=== PATIENT | female | born 1980 | race American Indian/Alaskan Native ===

== ENCOUNTER 2016-12-11 13:08 | Emergency (ER) | payer MEDICAID ==
--- NOTE | 2016-12-11 14:19 | XRay Report ---
RIGHT ANKLE, 3 views: History: Pain after long. Findings: Mild soft tissue swelling is identified. No acute osseous abnormality or joint pathology is identified. The fifth metatarsal base is intact. Impression: Soft tissue swelling. No acute osseous injury.
--- NOTE | 2016-12-11 16:25 | Emergency Department Report ---
ED Lower Extremity HPI - General Chief Complaint: Extremity Injury, Lower Stated Complaint: RT ANKLE SWOLLEN Time Seen by Provider: 12/11/16 16:14 Source: patient Mode of arrival: Ambulatory Limitations: No Limitations - History of Present Illness MD Complaint: ankle injury -: Last night Injury: Ankle: Right Type of Injury: inversion Place: home Severity: mild Severity scale (0 -10): 2 Improves With: NSAID Worsens With: weight bearing, movement Other Symptoms: other (also needing refill on BP meds.) Associated Symptoms: denies: snap/pop sensation, swelling, numbness, tingling - Related Data Previous Rx's Medication Instructions Recorded Last Taken Type Hydrochlorothiazide [HCTZ] 25 mg PO QDAY #60 tablet 12/11/16 Unknown Rx Metoprolol Xl [Metoprolol 50 mg PO QDAY #60 tablet 12/11/16 Unknown Rx SUCCINATE ER TAB] Allergies Allergy/AdvReac Type Severity Reaction Status Date / Time lisinopril AdvReac Swelling Verified 12/11/16 15:50 ED Review of Systems ROS: Stated complaint: RT ANKLE SWOLLEN Other details as noted in HPI Comment: All other systems reviewed and negative ED Past Medical Hx - Past Medical History Previous Medical History?: Yes Hx Hypertension: Yes - Surgical History Past Surgical History?: No - Social History Smoking Status: Never Smoker Substance Use Type: Alcohol - Medications Home Medications: Home Medications Medication Instructions Recorded Confirmed Last Taken Type Hydrochlorothiazide [HCTZ] 25 mg PO QDAY #60 tablet 12/11/16 Unknown Rx Metoprolol Xl [Metoprolol 50 mg PO QDAY #60 tablet 12/11/16 Unknown Rx SUCCINATE ER TAB] ED Physical Exam - General Limitations: No Limitations General appearance: alert, in no apparent distress - Head Head exam: Present: atraumatic, normocephalic - Eye Eye exam: Present: normal appearance - ENT ENT exam: Present: mucous membranes moist - Neck Neck exam: Present: normal inspection - Respiratory Respiratory exam: Present: normal lung sounds bilaterally. Absent: respiratory distress - Cardiovascular Cardiovascular Exam: Present: regular rate, normal rhythm. Absent: systolic murmur, diastolic murmur, rubs, gallop - GI/Abdominal GI/Abdominal exam: Present: soft, normal bowel sounds - Extremities Exam Extremities exam: Present: normal inspection, full ROM, tenderness (lateral mallelous right ankle tenderness) - Back Exam Back exam: Present: normal inspection - Neurological Exam Neurological exam: Present: alert, oriented X3 - Psychiatric Psychiatric exam: Present: normal affect, normal mood - Skin Skin exam: Present: warm, dry, intact, normal color. Absent: rash ED Course Vital Signs 12/11/16 12/11/16 13:36 15:54 Temperature 98 F Pulse Rate 89 71 Respiratory 18 16 Rate Blood Pressure 197/125 Blood Pressure 185/114 [Right] O2 Sat by Pulse 100 100 Oximetry ED Lower Extremity MDM - Medical Decision Making will discharge , noting her HTN which is uncontrolled due to non compliance, no evidence of end organ damage at this time. will dc with outpatient referral Critical care attestation.: If time is entered above; I have spent that time in minutes in the direct care of this critically ill patient, excluding procedure time. ED Disposition Clinical Impression: Ankle sprain, Hypertension Is pt being admited?: No Does the pt Need Aspirin: No Condition: Good Prescriptions: Hydrochlorothiazide [HCTZ] 25 mg PO QDAY #60 tablet Metoprolol Xl [Metoprolol SUCCINATE ER TAB] 50 mg PO QDAY #60 tablet Referrals: PRIMARY CARE [Primary Care Provider] - 3-5 Days Time of Disposition: 16:25
[2016-12-11 16:49] VITALS: BP 173/104
== END 2016-12-11 16:49 | disposition home or self-care (01) ==
LOC: ED 13:08
DX: S93.401A Sprain of unspecified ligament of right ankle, initial encounter (principal); I10 Essential (primary) hypertension; X50.3XXA Overexertion from repetitive movements, initial encounter; X50.9XXA Other and unspecified overexertion or strenuous movements or postures, initial encounter; X50.0XXA Overexertion from strenuous movement or load, initial encounter; Y93.89 Activity, other specified; Y92.89 Other specified places as the place of occurrence of the external cause; Y99.8 Other external cause status; Z88.8 Allergy status to other drugs, medicaments and biological substances

== ENCOUNTER 2017-03-28 00:51 | Emergency (ER) | payer MEDICAID ==
[2017-03-28] MEDS ORDERED: BOOSTRIX IM ONE (02:13)
[2017-03-28] MEDS ORDERED: NORCO 5/325 PO ONE (02:13)
[2017-03-28 02:20] LABS: Bilirubin,Urine NEG (Negative); Blood,Urine NEG (Negative); Ketones,Urine NEG (Negative); Leukocyte Esterase,Urine TR (Negative); Nitrite,Urine NEG (Negative); Protein,Urine <15 mg/dL mg/dL (Negative); Urobilinogen,Urine < 2.0 mg/dL (<2.0)
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
[2017-03-28 03:35] LABS: Basophils % (Auto) 0.6 % (0.0-1.8); Eosinophils % (Auto) 0.2 % (0.0-4.3); Mean Corpuscular HGB Conc 30 % (30-34); Platelet Count 236 K/mm3 (140-440); Red Blood Count 4.41 M/mm3 (3.65-5.03)
[2017-03-28 03:38] LABS: Hematocrit 30.6 % (30.3-42.9); Hemoglobin 9.1 gm/dl (10.1-14.3); Mean Corpuscular Hemoglobin 21 pg (28-32); Mean Corpuscular Volume 70 fl (79-97)
[2017-03-28 03:41] LABS: Alanine Aminotransferase 6 units/L (7-56); Albumin 4.4 g/dL (3.9-5); Albumin/Globulin Ratio 1.3 %; Alkaline Phosphatase 58 units/L (35-129); Anion Gap 17 mmol/L; BUN/Creatinine Ratio 11.25; Blood Urea Nitrogen 9 mg/dL (7-17); Calcium 9.2 mg/dL (8.4-10.2); Carbon Dioxide 25 mmol/L (22-30); Chloride 102.6 mmol/L (98-107); Glucose 107 mg/dL (65-100); Sodium 141 mmol/L (137-145); Total Protein 7.7 g/dL (6.3-8.2)
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
[2017-03-28 05:37] VITALS: BP 152/90
--- NOTE | 2017-03-28 09:03 | XRay Report ---
Chest 2 views: History: Chest pain. Findings: Normal cardiomediastinal silhouette. Trachea is midline. No consolidation, pneumothorax or pleural effusion. Impression: No acute cardiopulmonary findings.
== END 2017-03-28 05:37 | disposition home or self-care (01) ==
LOC: ED 00:51
DX: S16.1XXA Strain of muscle, fascia and tendon at neck level, initial encounter (principal); S39.012A Strain of muscle, fascia and tendon of lower back, initial encounter; G89.29 Other chronic pain; I10 Essential (primary) hypertension; F17.200 Nicotine dependence, unspecified, uncomplicated; Z98.890 Other specified postprocedural states; Z88.8 Allergy status to other drugs, medicaments and biological substances; V89.2XXA Person injured in unspecified motor-vehicle accident, traffic, initial encounter; Y93.89 Activity, other specified; Y99.8 Other external cause status; Y92.488 Other paved roadways as the place of occurrence of the external cause
CPT/HCPCS: 36415; 71020; 72125; 72131; 80053; 81001; 81025; 85025; 90471; 90715

== ENCOUNTER 2019-04-01 14:51 | Emergency (ER) | payer MEDICAID ==
--- NOTE | 2019-04-01 14:58 | Event Note ---
ED Screening Note ED Screening Note: a/c low back pain no home meds no dysuria, no fever or chills rx norvasc atenolol no fall or trauma This initial assessment/diagnostic orders/clinical plan/treatment(s) is/are subject to change based on patients health status, clinical progression and re- assessment by fellow clinical providers in the ED. Further treatment and workup at subsequent clinical providers discretion. Patient/guardian urged not to elope from the ED as their condition may be serious if not clinically assessed and managed. Initial orders include: IM pain med in ACC
[2019-04-01 14:59] VITALS: BP 134/89
[2019-04-01 15:42] LABS: Bacteria,Urine 1+ /HPF (Negative); Bilirubin,Urine NEG (Negative); Blood,Urine NEG (Negative); Color,Urine Yellow (Yellow); Protein,Urine <15 mg/dL mg/dL (Negative)
[2019-04-01 15:45] LABS: HCG Qualitative,Urine Negative (Negative)
--- NOTE | 2019-04-01 16:27 | Emergency Department Report ---
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 The patient denies any trauma, injuries or falls today. Patient states that pain is a progressive lower back and radiates down her right thigh ED Past Medical Hx - Past Medical History Hx Hypertension: Yes Hx Arthritis: Yes Additional medical history: CHRONIC BACK PAIN - Surgical History Additional Surgical History: - Social History Smoking Status: Current Every Day Smoker Substance Use Type: Alcohol - Medications Home Medications: Home Medications Medication Instructions Recorded Confirmed Last Taken Type Metoprolol Xl [Metoprolol 50 mg PO QDAY #60 tablet 12/11/16 Unknown Rx SUCCINATE ER TAB] hydroCHLOROthiazide [HCTZ] 25 mg PO QDAY #60 tablet 12/11/16 Unknown Rx HYDROcodone/APAP 5-325 [[place] 1 each PO Q6HR PRN #12 tablet 03/28/17 Unknown Rx 5/325] diazePAM TAB [Valium] 2 mg PO TID PRN #12 tablet 03/28/17 Unknown Rx Gabapentin [Neurontin] 300 mg PO BID #30 cap 04/01/19 Unknown Rx ED Review of Systems ROS: Stated complaint: LOW BACK PAIN Other details as noted in HPI Comment: All other systems reviewed and negative Physical Exam - Physical Exam Vital Signs: Vital Signs 04/01/19 14:56 Temperature 98 F Pulse Rate 71 Respiratory 16 Rate Blood Pressure 134/89 [Left] O2 Sat by Pulse 95 Oximetry Physical Exam: GENERAL: Alert and oriented x3, no apparent distress, Normal Gait, atraumatic. HEAD: Head is normocephalic and a-traumatic. NECK: Supple. Non edematous, No lymphadenopathy or thyromegaly. No C-spine tenderness, full range of motion LUNGS: Symetrical with respiration, No wheezing, no rales or crackles, CTAB. HEART: S1, S2 present, regular rate and rhythm without murmur, no rubs, no gallops. Non tender to palpation BACK: Full range of motion, no spinal tenderness, Tenderness to palpation of the trapezius muscles and latissimus dorsi muscles of the back EXTREMITIES/MUSCULOSKELETAL: No cyanosis, clubbing, rash, lesions or edema. Full ROM bilaterally. UE/LE Pulses 2+ bilaterally. LE and UE 5+ strength bilaterally, NEUROLOGIC: The patient is cooperative with no focal neurologic deficits. SKIN: Warm and dry, No lesions, No ulceration or induration present. ED Course Vital Signs 04/01/19 14:56 Temperature 98 F Pulse Rate 71 Respiratory 16 Rate Blood Pressure 134/89 [Left] O2 Sat by Pulse 95 Oximetry ED Medical Decision Making - Medical Decision Making 38-year-old female presents to ED with lumbar radiculopathy ED course: Vital signs are normal patient is in no acute distress Discussed with patient follow-up with primary care physician. Discussed the patient and take medications as prescribed. Patient has no neurological deficit. Patient is alert and oriented 3 and understands all instructions given. Discussed drowsiness effect of gabapentin makes her drowsy and not to operate machinery while taking gabapentin Patient does state that she was taking gabapentin and is out of her gabapentin. Patient does state she wants a referral for another orthopedic doctor because she sees Dr. Corral and she is not happy with. Critical care attestation.: If time is entered above; I have spent that time in minutes in the direct care of this critically ill patient, excluding procedure time. ED Disposition Clinical Impression: Chronic back pain, Lumbar radicular pain Disposition: DC- TO HOME OR SELFCARE Is pt being admited?: No Does the pt Need Aspirin: No Condition: Stable Instructions: Chronic Back Pain (ED), Lumbar Radiculopathy (ED) Additional Instructions: Make sure to follow up with the primary care physician as discussed. Take all your medications as you've been prescribed. If you have any worsening symptoms or develop new symptoms please return to ED immediately. Prescriptions: Gabapentin [Neurontin] 300 mg PO BID #30 cap Referrals: CHANCE HORNE MD [Primary Care Provider] - 3-5 Days [facility] [Provider Group] - 3-5 Days [facility], [Provider Group] - 3-5 Days [facility] [Provider Group] - 3-5 Days Forms: Work/School Release Form Time of Disposition: 16:30
== END 2019-04-01 16:40 | disposition home or self-care (01) ==
LOC: ED 14:51
DX: M54.16 Radiculopathy, lumbar region (principal); I10 Essential (primary) hypertension; M19.90 Unspecified osteoarthritis, unspecified site; F17.200 Nicotine dependence, unspecified, uncomplicated; Z88.8 Allergy status to other drugs, medicaments and biological substances; Z79.899 Other long term (current) drug therapy
CPT/HCPCS: 81001; 81025